=== PATIENT | male | born 1965 | race Caucasian/White ===

== ENCOUNTER 2016-12-03 05:05 | Emergency (ER) | payer SELFPAY ==
[~2016-12-03] VITALS: Ht 165.1 cm; Wt 70.0 kg
[~2016-12-03 05:05] MED LIST: FLOMAX PO; GLYBURIDE PO
[2016-12-03 05:10] VITALS: Ht 165.1 cm; Wt 70.0 kg
[2016-12-03] MEDS ORDERED: CLOT30CR24 TOP (06:07)
[2016-12-03] MEDS ORDERED: IBUP-1542 PO (06:07)
--- NOTE | 2016-12-03 06:15 | ERD ---
ER Documentation Chief Complaint Date/Time DATE: 12/03/16 TIME: 06:15 Chief Complaint states greenish/yellowish penile discharge x 3 days HPI 50-year-old male with history of diabetes presents with chief complaint of white curdy discharge around his penis 5 days. He denies dysuria, flank pain, lesions on his penis, penile swelling, hematuria. States it is similar complaint last year, was seen here and prescribed a cream which resolved his symptoms. He states that he has not been sexually active in the past month. ROS All systems reviewed and are negative except as per history of present illness. Medications Home Meds Active Scripts Ibuprofen* (Motrin*) 600 Mg Tab, 600 MG PO Q6, #30 TAB Prov:Cecelia Browne PA-C 12/03/16 Clotrimazole* (Clotrimazole* AF) 1% - 30 Gm Cream.gm., 1 APPLIC TOP BID for 7 Days, TUB Prov:Cecelia Browne PA-C 12/03/16 Reported Medications [Glyburide] No Conflict Check, PO 01/26/16 [Flomax] No Conflict Check, PO 01/26/16 Allergies Allergies: Coded Allergies: No Known Allergy (Unverified , 12/03/16) PMhx/Soc History of Surgery: Yes (LEFT ARM ) Anesthesia Reaction: No Hx Neurological Disorder: No Hx Respiratory Disorders: No Hx Cardiac Disorders: No Hx Psychiatric Problems: No Hx Miscellaneous Medical Probl: Yes (dm2, enlarged prostate, penile infection ) Hx Alcohol Use: Yes (occassional beers) Hx Substance Use: No Hx Tobacco Use: Yes (5 YEARS AGO) Smoking Status: Former smoker Physical Exam Vitals Vital Signs Date Time Temp Pulse Resp B/P Pulse Ox O2 Delivery O2 Flow Rate FiO2 12/03/16 05:10 97.7 72 20 142/80 98 Physical Exam GENERAL: Non-toxic. No apparent signs of distress. LUNGS: Clear to auscultation. No accessory muscle use. No wheezing, no crackles. No signs or symptoms of respiratory distress. HEART: Regular rate and rhythm. No murmurs, clicks, rubs or gallops. ABDOMEN: Soft, nontender and nondistended. Bowel sounds positive. No rebound or guarding. No gross peritoneal signs. No Ceja or McBurney point tenderness. No gross masses. BACK: No midline tenderness, no costovertebral tenderness. : Patient is uncircumcised, foreskin is easily retractable, there is a white curdy discharge over the glans penis and inner foreskin. No discharge from the penis. No lesions on the penis. EXTREMITIES: No peripheral cyanosis or edema. No focal pain or notable trauma. Full range of motion. Good capillary refill. NEURO: The patient moves all 4 extremities with 5/5 strength. Cranial nerves are grossly intact. Normal mental status for age. Good muscle tone. SKIN: There is no apparent rash, petechiae, erythema or swelling. Good skin turgor. Procedures/MDM Patient was then complaint of white creamy discharge around the tip of his penis , states that a similar complaint last year and was prescribed a cream which provided relief of his symptoms. He states he has a history of diabetes. On examination there was white curdy material around the tip of the glans penis and around the inner foreskin. Patient states he has not been sexually active for over one month. However a sent urine sample to lab for gonorrhea chlamydia culture. Physical exam findings and symptoms are most closely consistent with balanitis, hygiene for uncircumcised skin discussed. Proper blood sugar control instructions discussed. At this time a low suspicion for syphilis, paraphimosis , phimosis, UTI, pyelonephritis, and STD. Patient still for discharge and outpatient management. Advised to follow-up with PCP in 1-2 days. Patient will be contacted if gonorrhea chlamydia results come back positive, at this time I will not be treating for this as suspicion is low due to patient not being sexually active recently and no discharge being seen on exam. Departure Diagnosis: Primary Impression: Balanitis Condition: Good Patient Instructions: Balanitis Referrals: SOPHIE RAO (PCP) Additional Instructions: Llame al doctor MADDI y brittanie carmen LEONELA PARA DENTRO DE 1-2 RM.Dgale a la secretaria que nosotros le instruimos hacer esta leonela.Avise o llame si thomas condicin se empeora antes de la leonela. Regresa aqui si peor o no mejor. Cecelia Browne PA-C December 03, 2016 06:15
[2016-12-03 06:27] VITALS: BP 121/74; PULSE 69; RESP 12; TEMP 98.3
== END 2016-12-03 06:32 | disposition home or self-care (01) ==
LOC: FTE 05:05
DX: N48.1 Balanitis (principal); E11.9 Type 2 diabetes mellitus without complications; Z79.84 Long term (current) use of oral hypoglycemic drugs; Z87.891 Personal history of nicotine dependence
CPT/HCPCS: 87591; 99283